=== PATIENT | male | born 1955 ===

== ENCOUNTER 2021-04-16 08:39 | Observation (INO) ==
--- NOTE | 2021-02-27 12:57 | PAT Medication Instructions ---
Medication Instructions Date of Service February 27, 2021 Home Medications Medication Instructions Recorded hydrocodone 5 mg-acetaminophen 325 1 tab PO Q6H PRN #30 tab 02/20/ mg tablet hydrocodone 5 mg-acetaminophen 325 mg tablet 1 tab PO Q6H PRN ibuprofen 800 mg tablet 800 mg PO Q8H PRN ASK your surgeon for instructions ibuprofen 800 mg tablet 800 mg PO Q8H PRN Take morning of surgery With a small sip of water, OTHERWISE NOTHING TO EAT OR DRINK AFTER MIDNIGHT: hydrocodone 5 mg-acetaminophen 325 mg tablet 1 tab PO Q6H PRN (okay to take up to 4 hours prior to surgery if needed) Take evening before surgery hydrocodone 5 mg-acetaminophen 325 mg tablet 1 tab PO Q6H PRN (if needed) Other Notes If you have any questions please call us at [phone] or [phone] or [phone] or [phone]
--- NOTE | 2021-03-01 10:08 | Anesthesiology Consultation ---
Date of Service March 01, 2021 Assessment & Plan (1) Encounter for pre-operative examination: Chart Review Chart Review: Acceptable Risk for Surgery (pending preop Covid testing results ) and Patient seen in Pre Admission Testing Per PAT appointment 03/01/2021, [facility]. Wears mask and social distances. Travels to [facility] for medical appointments. Patient is NOT vaccinated for Covid. Patient denies any known Covid infection in the past 90 days. No known Covid positive contacts or Covid related symptoms. Preop Covid testing scheduled 03/28/21= will await results. Educated on importance of self quarantining, social distancing and wearing mask in public both for the patient after Covid testing done History Surgery Operation Date: 03/30/21 11:45 Proposed Procedures p Left Total Shoulder Arthroplasty Reverse - Jay Barron DO Height/Weight Height: 5 ft 10 in Weight: 116.4 kg Allergies Allergy/AdvReac Type Severity Reaction Status Date / Time No Known Allergies Allergy Verified 02/22/21 10:22 Medications Home Medications Medication Instructions Recorded Confirmed Last Taken hydrocodone 5 mg-acetaminophen 325 1 tab PO Q6H PRN #30 tab 02/20/21 02/22/21 Unknown mg tablet ibuprofen 800 mg tablet 800 mg PO Q8H PRN 02/20/21 02/22/21 Unknown Past Medical History Medical History Hard of hearing Wears hearing aids No known health problems Exercise / Class Metabolic Activity II 4-5 Yardwork/Stairs/Walk up hill (ONE FLIGHT OF STAIRS - NO CHEST PAIN OR SOB ) Past Family History Family History Other No known health problems Past Surgical History Surgical History History of colonoscopy History of esophagogastroduodenoscopy (EGD) History of repair of rotator cuff RIGHT History of shoulder surgery X 3-LEFT Past Anesthesia History No Hx of Anesthesia Complications and No Family Hx of Anesthesia Complications History of PONV No Hx of PONV and No Hx of Motion Sickness Social History Smoking Status: Former smoker Do You Dip or Chew Tobacco: No Smoking End Date: QUIT 2 MONTHS AGO Hx Alcohol Use: Yes Alcohol type: beer alcohol intake frequency: a few times a week Hx Substance Use: No Review of Systems Patient denies chest pain, shortness of breath, dyspnea on exertion, reflux, cough, wheezing, palpitations. No hx of seizures, stroke, DE, apnea/snoring. No hx of blood clots or blood transfusions Physical Exam Vital Signs VITALS BP 150/82 P 82 TEMP 98.3 SP02 96% RESP 16 Constitutional no acute distress ENMT Mouth: no TMJ clicking Thyromental Distance: > or= 3.5 Finger Breadths Mallampati Class: II Full upper denture Missing molar Neck + limited neck extension (mild ) Respiratory normal respiratory effort; no respiratory distress Auscultation: lungs clear to auscultation bilaterally; no wheezes Cardiovascular Rate/Rhythm: regular rate and regular rhythm Heart Sounds: no murmur Vessels: no carotid bruit Musculoskeletal Spine: no pain with cervical ROM Extremities: extremities normal to inspection Psychiatric Orientation: alert Lab Results Anesthesia Preop Results Results Anesthesia Widget: WBC 11.69 K/uL (4.8-10.8) H 03/01/21 Hgb 15.6 g/dL (14.0-18.0) 03/01/21 Hct 45.1 % (42-52) 03/01/21 Plt 269 K/uL (130-400) 03/01/21 Na 131 mmol/L (136-145) L 03/01/21 K 4.4 mmol/L (3.5-5.1) 03/01/21 Cl 100 mmol/L (98-107) 03/01/21 CO2 28 mmol/L (21-32) 03/01/21 BUN 13 mg/dl (7-18) 03/01/21 Creat 0.90 mg/dl (0.6-1.4) 03/01/21 Glucose Level 125 mg/dl (70-99) H 03/01/21 PT 10.3 Seconds (9.0-12.0) 03/01/21 PTT 31.3 Seconds (21.0-31.0) H 03/01/21 INR 1.0 (0.9-1.1) 03/01/21 Blood Type O Negative 03/01/21 Antibody Screen NEGATIVE 07/29/21 Testing Electrocardiogram Date: 03/01/21 Findings: + NSR @ (77bpm) Incomplete RBBB. Chest X-Ray Date: 03/01/21 Findings: + NAD Mild interstitial coarsening of the lung bases, likely chronic.
--- NOTE | 2021-04-16 06:37 | History & Physical Report ---
Date of Service April 16, 2021 Assessment & Plan (1) Rotator cuff arthropathy of left shoulder: We will proceed with a left reverse shoulder arthroplasty. Postoperatively he will be placed in a sling and kept overnight in the hospital for postoperative medical management. History of Present Illness Chief Complaint: Cuff arthropathy of the left shoulder. Primary Care Provider: NO PCP Ayo is a pleasant 65-year-old male who initially injured his left shoulder about 10 years ago. He underwent a left shoulder arthroscopy by Dr. Higgins in [place] in 2010. He then had a revision arthroscopy in 2011 of his left shoulder in [place]. He had more pain after that and had another surgery to his left shoulder in 2012 in [place]. He had a little bit more pain relief from that surgery. Initially, he was doing well but over the past few years, his shoulder has gotten much worse. Over the past 6 months, it has been unbearable. He cannot sleep at night. He cannot move it or lift it away from his body. He did have an MRI at an outside institution. The MRI showed signs of advanced arthritis in a very weakened rotator cuff. After failing conservative treatment, he elected proceed with a left reverse shoulder arthroplasty.. Allergies Allergy/AdvReac Type Severity Reaction Status Date / Time No Known Allergies Allergy Verified 02/22/21 10:22 Home Medications Medication Instructions Recorded Confirmed Type hydrocodone 5 mg-acetaminophen 325 1 tab PO Q6H PRN #30 tab 02/20/21 02/22/21 Rx mg tablet ibuprofen 800 mg tablet 800 mg PO Q8H PRN 02/20/21 02/22/21 History hydrocodone 5 mg-acetaminophen 325 1 tab PO Q6H PRN #30 tab 03/29/21 Rx mg tablet hydrocodone 5 mg-acetaminophen 325 1 tab PO Q6H PRN #30 tab 03/30/21 Rx mg tablet prednisone 10 mg tablet 10 mg PO DAILY 04/13/21 History Past Med/Surg History Medical History Hard of hearing Wears hearing aids No known health problems Surgical History History of colonoscopy History of esophagogastroduodenoscopy (EGD) History of repair of rotator cuff RIGHT History of shoulder surgery X 3-LEFT Family History Other No known health problems Social History Smoking Status: Former smoker Smoking End Date: QUIT 2 MONTHS AGO; Second Hand Exposure: Yes (PARENTS SMOKED); Do You Dip or Chew Tobacco: No; Hx Alcohol Use: Yes Alcohol type: beer Hx Substance Use: No Preferred Language: Brazilian Communication Ability: Effective 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 Physical Exam On physical examination of the left shoulder, he has very limited range of motion. He has pain with range of motion weakness throughout. He has pain over the glenohumeral joint line.. Constitutional WD/WN, vitals as above Eyes PERRL, conjunctivae normal, anicteric sclerae ENMT external ear and nose normal, oropharynx normal Neck trachea midline, no thyromegaly Respiratory normal respiratory effort Cardiovascular RRR, no murmur, no edema Gastrointestinal (Abdomen) normal bowel sounds, soft, nontender, no hepatosplenomegaly Psychiatric A+Ox3, euthymic affect Results & Data Results & Data Laboratory Results . Diagnostic Findings X-rays of the left shoulder do show osteoarthritis with joint space narrowing, osteophyte formation, and [id number] articulation MRI of the left shoulder shows advanced osteoarthritis with bony edema and weakening of the rotator cuff.. PG Care Time/CCT Total # of Minutes Spent Total Time Spent with Patient: Total time spent is greater than 50% in coordination of care (as documented) at patient's floor/unit and/or counseling patient: Coding Level of Care Code None Diagnoses Rotator cuff arthropathy of left shoulder M12.812
[~2021-04-16 08:39] MED LIST: ACETAMINOPHEN 500 MG TAB PO SCH; BUPIVACAINE 0.5 % 5 MG/1 ML PF 10ML VIAL ONE; FAMOTIDINE 20 MG TAB PO SCH; GABAPENTIN 600 MG DOSE PO SCH; LR 15ML/HR IV SCH; LR 60ML/HR IV SCH; ROPIVACAINE 0.5% HCL/PF 150 MG, BUPIVACAINE 0.75% MPF 20 ML, EPINEPHrine 30MG/30ML (OR ... INSTIL SCH; TRANEXAMIC ACID 1,000 MG **IV Pre-op IV SCH; ceFAZolin 2000MG 2,000 MG/15 ML SYR IV SCH
--- NOTE | 2021-04-16 10:29 | History & Physical Bridge Note ---
Date of Service April 16, 2021 History & Physical Bridge Note I have examined the patient, reviewed the History & Physical and in the interval since the performance of the History & Physical I have noted the following changes of clinical significance: no changes noted
[2021-04-16] MEDS ORDERED: fentaNYL citrate 100 MCG/2 ML VIAL IV PRN (10:53)
[2021-04-16] MEDS ORDERED: ONDANSETRON INJ 2 MG/ML 2 ML VIAL IV PRN ×2 (10:53→14:55)
[2021-04-16] MEDS ORDERED: ePHEDrine sulfate 50 MG/ML AMP IV PRN (10:53)
[2021-04-16] MEDS ORDERED: ATROPINE SULFATE 0.1 MG/ML 10ML SYR IV PRN (10:53)
[2021-04-16] MEDS ORDERED: ROCURONIUM BROMIDE 10 MG/ML 5 ML VIAL IV ONE (10:57)
[2021-04-16] MEDS ORDERED: MIDAZOLAM HCL 1 MG/ML 2ML VIAL ONE (10:57)
[2021-04-16] MEDS ORDERED: fentaNYL citrate 100 MCG/2 ML VIAL ONE ×2 (10:57→12:37)
[2021-04-16] MEDS ORDERED: PROPOFOL IV EMULSION 10 MG/ML 20 ML VIAL IV ONE (10:57)
[2021-04-16] MEDS ORDERED: LIDOCAINE 2% 2 ML VIAL/AMP(20MG/ML) INFIL ONE (10:57)
[2021-04-16] MEDS ORDERED: ONDANSETRON INJ 2 MG/ML 2 ML VIAL ONE (10:58)
[2021-04-16] MEDS ORDERED: ORTHO JOINT ANESTHETIC ONE (11:42)
[2021-04-16] MEDS ORDERED: DEXAMETHASONE SOD INJ 4 MG/ML VIAL ONE (12:34)
--- NOTE | 2021-04-16 13:41 | Operative Report ---
PG Post Operative Report Pre & Post Diagnosis Operation Date: 04/16/21 11:30 Pre-Op Diagnosis: Left Shoulder Osteoarthritis Post-Op Diagnosis: Left Shoulder Osteoarthritis I identified the patient and participated in the time-out.: Yes Procedure Operation Date: 04/16/21 11:30 Actual Procedures p Left Reverse Total Shoulder Arthroplasty(Left) - Jay Barron DO Surgeon Jay Barron DO Civil Attorney Jay Hernandez PAC Estimated Blood Loss 250 Findings Consistent with Post-Op Diagnosis Specimens Left humeral head Complications none Disposition Disposition: Recovery Room Indications Ayo is a 65-year-old male who has a history of 3 previous arthroscopies to his left shoulder. He continues to have significant left shoulder pain. MRI and clinical examination were diagnostic for advanced osteoarthritis of the left shoulder with an insufficient rotator cuff. After failing conservative treatment, he elected proceed with a left reverse shoulder arthroplasty. Description of Procedure Implants used: I used a [employer]omet Comprehensive reverse total shoulder arthroplasty system with a size 15 press fit micro humeral stem, a standard humeral tray and a standard humeral bearing, a 25 mm small augment baseplate with a 6.5 mm central screw and superior and inferior locking screws, and a size 40 mm eccentric glenosphere. Ayo arrived at [facility] for the above procedure. He was seen in the preoperative holding area and the operative extremity was identified and signed. He was given a preoperative antibiotic, TXA, and an interscalene nerve block. He was taken back to the operating room, laid on table in supine position, and put under general anesthesia. He was then put into the beachchair position. The shoulder was then prepped and draped in sterile fashion. A gilles eout was done and the patient and the operative extremity was properly identified. A deltopectoral approach was used. Dissection was taken down through the fascia and the deltoid was retracted laterally and the conjoined tendon was retracted medially. The anterior shoulder was exposed. The biceps tendon was absent from his previous arthroscopies. The subscapularis was then directly released off the lesser tuberosity with a peel technique. The inferior capsule was released and the humeral head was dislocated. A canal finding reamer was sent down the center of the humeral canal. Sequent ial reaming up to a size 15 reamer was done. Off that reamer, a proximal humeral resection guide was placed. The proximal humerus was resected at 135 of inclination and 25 of retroversion. Osteophytes were then removed and the glenoid was exposed. Time was spent doing a complete capsular and labral release. The glenoid guide was then placed in the inferior aspect of the glenoid. A 3.2 mm Steinmann pin was then placed into the glenoid vault at 10 of inclination. The glenoid baseplate was then reamed. The final size 25 mm small augment baseplate was then impacted in the place. A 6.5 mm central screw was then placed followed by superior and inferior locking screws. A 40 mm eccentric glenosphere was then impacted into place. Surrounding soft tissues were then injected with 100 cc an orthopedic pain control cocktail. The proximal humerus was then exposed. Sequential broaching of the humerus up to a size 15 broach was done. Off that broach a standard humeral tray was trialed. The shoulder was then reduced, brought through a full range of motion, and felt to be stable. The shoulder was then dislocated and the broach was removed. The final size 15 micro press-fit humeral stem was then impacted into place. A standard humeral bearing was then snapped onto a standard humeral tray. The humeral tray was then impacted onto the humeral stem. The shoulder was once again reduced, brought through a full range of motion, and felt to be stable. The subscapularis was then tenodesed back to the lesser tuberosity with transosseous FiberWire sutures and side to side sutures with the arm in 45 of external rotation. A dilute betadyne lavage was then done for 3 minutes. The joint was then irrigated with normal saline solution. Hemostasis was obtained. The interval was closed with 2-0 Vicryl suture. The skin was then closed with 2-0 Vicryl and abril. A Silverlon dressing was placed and the arm was rested in a regular arm sling. He was then extubated and transferred to a hospital bed. He taken to the postanesthesia care unit in stable condition. He tolerated the procedure well. Jay Hernandez PA-C, was present for the entire procedure. He was critical for patient positioning, prepping, draping, retraction exposure, wound closure and application of sterile dressing. I attest to the content of the Intraoperative Record and any orders documented therein. Any exceptions are noted below.
--- NOTE | 2021-04-16 14:33 | XRay Report ---
XR shoulder LT min 2V routine CLINICAL HISTORY: Post shoulder surgery COMPARISON STUDY: None. FINDINGS: Status post reverse left total shoulder arthroplasty. The hardware is intact. No fracture o r dislocation. Skin abril are in place. IMPRESSION: Status post reverse left total shoulder arthroplasty. No evidence for hardware complicat ion. ACT 112: Negative or not required by law. Electronically signed by: John Amaral M.D. 04/16/2021 2:32 PM
[2021-04-16] MEDS ORDERED: HYDROmorphone INJ 0.5 MG/0.5 ML SYR IV PRN (14:55)
[2021-04-16] MEDS ORDERED: oxyCODONE HCL IR 5 MG TAB (IMMEDIATE RELEASE) PO PRN (14:55)
[2021-04-16] MEDS ORDERED: METOCLOPRAMIDE HCL INJ 5 MG/ML 2 ML VIAL IV PRN (14:55)
[2021-04-16] MEDS ORDERED: bisacodyL 10 MG SUPP PR PRN (14:55)
[2021-04-16] MEDS ORDERED: NALOXONE HCL 0.4 MG/1 ML VIAL/CARP IV PRN (14:55)
[2021-04-16] MEDS ORDERED: MAGNESIUM HYDROXIDE SUSP 30 ML UDC PO PRN (14:55)
--- NOTE | 2021-04-16 15:02 | Anesthesiology Progress Note ---
Date of Service April 16, 2021 Anesthesia Post Procedure Vital Signs Vital Signs: Temp Pulse Pulse Resp BP Pulse Ox 04/16/21 14:40 36.3 C L 73 13 132/70 96 04/16/21 14:30 76 17 135/82 93 04/16/21 14:20 88 16 131/84 93 04/16/21 14:10 93 H 18 130/90 98 04/16/21 14:00 93 H 18 130/90 98 04/16/21 13:51 36.1 C L 71 18 146/81 H 96 04/16/21 09:11 37.1 C 80 20 158/98 H 97 Pain Intensity Left Shoulder: Pain Intensity: 2 Transfer of Care Handoff Completed per policy Notes Mental Status: alert / awake / arousable Patient Amnestic to Procedure: Yes Nausea / Vomiting: adequately controlled Pain: adequately controlled Airway Patency, RR, SpO2: stable & adequate BP & HR: stable & adequate Hydration State: stable & adequate Anesthetic Complications: no major complications apparent
[2021-04-16] MEDS: SODIUM CHLORIDE 0.9% 1000ML 1,000 ML IV SCH (15:15)
[2021-04-16] MEDS: ACETAMINOPHEN 500 MG TAB PO SCH ×5 (17:04→21:40)
[2021-04-16] MEDS: KETOROLAC 30 MG/ML VIAL IV SCH (18:34)
[2021-04-16] MEDS: GABAPENTIN 600 MG DOSE PO SCH ×3 (19:13→23:11)
[2021-04-16] MEDS: FAMOTIDINE 20 MG TAB PO SCH ×3 (19:13→23:10)
[2021-04-16] MEDS: TRANEXAMIC ACID 1,000 MG **IV Pre-op IV SCH ×3 (19:17→23:12)
[2021-04-16] MEDS: ceFAZolin 2000MG 2,000 MG/15 ML SYR IV SCH (19:44)
[2021-04-16] MEDS: DOCUSATE SODIUM 100 MG CAP PO SCH (19:45)
[2021-04-16] MEDS ORDERED: SENNA 8.6 MG TAB PO SCH (21:00)
[2021-04-17] MEDS: KETOROLAC 30 MG/ML VIAL IV SCH ×2 (00:08→05:39)
[2021-04-17] MEDS: SODIUM CHLORIDE 0.9% 1000ML 1,000 ML IV SCH (01:08)
[2021-04-17] MEDS: ceFAZolin 2000MG 2,000 MG/15 ML SYR IV SCH (03:18)
[2021-04-17] MEDS: ACETAMINOPHEN 500 MG TAB PO SCH (05:39)
--- NOTE | 2021-04-17 06:37 | Orthopedic Progress Note ---
Date of Service April 17, 2021 Assessment & Plan (1) Status post reverse total replacement of left shoulder: Overall is doing very well. Is not having any pain in the left shoulder. He will be seen by physical therapy today for ambulation and range of motion exercises. He can be discharged home later today. He will follow-up with orthopedics in 2 weeks. Agnes Rollins was seen and examined at bedside this morning. Overall is doing very well. He is not having any pain in the left shoulder. He was able to get some sleep last night. He has no complaints.. Review of Systems All systems reviewed & are unremarkable except as noted in HPI & below. Physical Exam On physical examination of the left shoulder, the dressing is clean and dry. He is wearing his sling as instructed. His radial, median, and ulnar nerves are checked intact at his wrist. His axillary nerve was not checked yet.. Results & Data Results & Data Laboratory Results . Diagnostic Findings Postoperative x-rays of the left shoulder show the prosthesis to be in anatomic alignment without any evidence of fracture, dislocation, or loosening. PG Care Time/CCT Total # of Minutes Spent Total Time Spent with Patient: Total time spent is greater than 50% in coordination of care (as documented) at patient's floor/unit and/or counseling patient: Coding Level of Care Code 87263 Post Operative Follow-Up Diagnoses Status post reverse total replacement of left shoulder Z96.612
[2021-04-17] MEDS ORDERED: dexAMETHasone 4 MG TAB PO SCH (08:00)
[2021-04-17] MEDS: DOCUSATE SODIUM 100 MG CAP PO SCH (08:54)
[2021-04-17] MEDS ORDERED: MULTIVITAMIN TAB PO SCH (09:00)
--- NOTE | 2021-04-25 12:44 | Discharge Summary ---
Date of Service April 25, 2021 Admission HPI (Per Admitting) Ayo is a pleasant 65-year-old male who initially injured his left shoulder about 10 years ago. He underwent a left shoulder arthroscopy by Dr. Higgins in [place] in 2010. He then had a revision arthroscopy in 2011 of his left shoulder in [place]. He had more pain after that and had another surgery to his left shoulder in 2012 in [place]. He had a little bit more pain relief from that surgery. Initially, he was doing well but over the past few years, his shoulder has gotten much worse. Over the past 6 months, it has been unbearable. He cannot sleep at night. He cannot move it or lift it away from his body. He did have an MRI at an outside institution. The MRI showed signs of advanced arthritis in a very weakened rotator cuff. After failing conservative treatment, he elected proceed with a left reverse shoulder arthropl asty.. Admission Exam (Per Admitting) On physical examination of the left shoulder, he has very limited range of motion. He has pain with range of motion weakness throughout. He has pain over the glenohumeral joint line.. Principal Diagnosis Same as "Discharge Diagnosis" noted below under Discharge Instructions. Discharge Exam On physical examination of the left shoulder, the dressing is clean and dry. He is wearing his sling as instructed. His radial, median, and ulnar nerves are checked intact at his wrist. His axillary nerve was not checked yet.. Discharge Data Procedures Performed Operation Date: 04/16/21 11:30 Actual Procedures p Left Reverse Total Shoulder Arthroplasty(Left) - Jay Barron DO Ordered Studies 03/30/21 05:00 US - OR guided needle placemen Routine 04/16/21 05:00 US - OR guided needle placemen Routine Hospital Course (1) Status post reverse total replacement of left shoulder: On April 16 [address] [facility] reverse shoulder replacement without complication. He had a general anesthetic and a left interscalene nerve block. Postoperatively he was placed in a sling and discharged to general orthopedic floors. His hospital course was uneventful. On postop day #1 his vital signs were stable his pain was well controlled. He was able to participate well with physical therapy doing ambulation and range of motion exercises. He was then discharged home. He will follow-up with orthopedics in 2 weeks. PG Care Time/CCT Total # of Minutes Spent Total Time Spent with Patient: Total time spent is greater than 50% in coordination of care (as documented) at patient's floor/unit and/or counseling patient: Discharge Plan Discharge Items Patient Disposition: Home - Home Health Services Reason For Visit: Left Shoulder Osteoarthritis Discharge Diagnosis: Left reverse shoulder replacement Activity: As commented below Non-emergency contact: Surgeon Call non-emergency contact if: your wound has increased redness and your wound has increased drainage Follow-up/Referrals: PCP,NO [Primary Care Provider] - Diet: Regular Addtl Attending Provider Instructions: Activity and Therapy Recommendations: * If you are using [facility] then therapy will be provided at your home until they feel you have accomplished all of your goals. * If you are using [facility] then Physical Therapy will be provided until they feel you are ready to start Outpatient Physical Therapy. * If you are not using home therapy then Outpatient Physical Therapy should start about 3-5 days from your day of surgery. Therapy will last about 8-12 weeks * Wear your sling for 3 weeks, unless otherwise instructed. You may remove your sling to shower and to dress, but otherwise, you should be in your sling at all times, including while sleeping * The shoulder replacement is very stable and you can use your hand while in the sling * You were shown a series of exercises in the hospital. Do these exercises daily including the exercises you were shown in physical therapy. Medications: * Narcotic You will likely be sent home from the hospital with a prescription for the narcotic pain medication that worked best throughout your stay. * Other medications may be prescribed for specific circumstances. If you have any questions, please call the office at . * Resume previous home medications unless otherwise instructed Dressing Care: Leave the Silverlon dressing in place for 7 days. After 7 days you may remove the dressing. If the incision is not draining then you may leave the abril open to air. If there is a little bit of drainage or if the abril are getting stuck on your clothing then cover the incision with a dry dressing. The abril will be removed at your 2 week follow-up appointment. Showering: You may shower with the Silverlon dressing in place. Do not let the shower spray hit the dressing directly. Pat the Silverlon dressing dry. If the dressing becomes wet underneath, then simply remove the dressing. Keep the incision dry until you are 7 days out from the day of surgery. After 7 days you may remove the Silverlon dressing and shower with the abril exposed. Let soapy water run over the abril and pat them dry. Do not scrub or soak the incision. Things To Watch For: * Drainage from the incision site that occurs more than one week after your surgery. * Increased redness at the incision site. * Fever above 102 degrees Fahrenheit. * Unusual chest pain or shortness of breath. * Call [facility] at with any of the above problems Follow-Up Visit: Follow-up with Dr. Barron's PA (Jay Hernandez) 2-3 weeks after your day of surgery. He will remove your abril and answer any questions. If you have any additional questions or concerns, Dr Barron is usually in the office at the same time and will be available An appointment was probably scheduled when you signed-up for surgery in the office. If you have any questions call More detailed instructions as well as Frequently Asked Questions were provided in a folder by our office when you signed-up for surgery. Please review these instructions when you get home. If you have any further questions or concerns, please feel free to call the office at [phone] Pending Studies at Discharge: No Stand-Alone Forms: My [facility], Opioid Pain Management Medications and DC Order Prescriptions: New oxycodone 5 mg Tablet 5 mg PO Q4H PRN (Reason: pain) Qty: 30 RF: 0 Continued prednisone 10 mg tablet 10 mg PO DAILY RF: 0 ibuprofen 800 mg tablet 800 mg PO Q8H PRN (Reason: Pain) RF: 0 Discontinued hydrocodone-acetaminophen 5-325 mg tablet 1 tab PO Q6H PRN (Reason: pain) Qty: 30 RF: 0 No Action hydrocodone-acetaminophen 5-325 mg tablet 1 tab PO Q6H PRN (Reason: pain) Qty: 30 RF: 0 Discharge Orders: Discharge Order (Routine); Ordered 04/17/21 Ordered By: Jay Barron Admission Data Admit Date/Time: 04/16/21 13:55 Attending Provider: Jay Barron Admit Provider: Jay Barron Primary Care Provider: PCP,NO Other Interventions: Discharge Summary Assessment (RN) Last Done: 04/17/21 08:25
== END 2021-04-17 11:16 | disposition home health service (06) ==
LOC: 3E 08:39 → ASU 08:39